=== PATIENT | female | born 1965 | race Caucasian/White ===

== ENCOUNTER 2020-11-05 12:55 | Emergency (ER) | payer BC, OTHER ==
[~2020-11-05] VITALS: Ht 162.6 cm; Wt 100.7 kg
[2020-11-05] MEDS ORDERED: KETOROLAC 30 MG/1 ML ONE (13:52)
[2020-11-05] MEDS ORDERED: KETOROLAC 30 MG/1 ML IVPush ONE (14:00)
[2020-11-05] MEDS ORDERED: SODIUM CHLORIDE 0.9% 1,000ML IV ONE (14:00)
[2020-11-05] MEDS ORDERED: SODIUM CHLORIDE FLUSH 10ML SYR IVF ONE (14:00)
--- NOTE | 2020-11-05 14:02 | NUR ---
PIV PLACED BY SUPERVISOR [employer] EFFECTS. LABS DRAWN AND COLLECTED BY PROOF CLERK. 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 SPOUSE AT BEDSIDE.
[2020-11-05 14:18] LABS: BASOPHILS % (AUTO) 1 % (0-1); EOSINOPHILS % (AUTO) 3 % (1-7); LYMPHOCYTES % (AUTO) 31 % (22-44); MEAN CORPUSCULAR HEMOGLOBIN 29.2 pg (27.0-34.8); MEAN CORPUSCULAR HGB CONC 33.2 g/dL (32.4-35.8); MEAN PLATELET VOLUME 8.9 fL (7.4-10.4); MONOCYTES % (AUTO) 8 % (2-9); NEUTROPHILS % (AUTO) 57 % (42-75); PLATELET COUNT 242 x10^3/uL (130-400); RED BLOOD COUNT 4.49 x10^6/uL (3.82-5.3); RED CELL DISTRIBUTION WIDTH 13.4 % (9.6-15.2)
[2020-11-05 14:20] LABS: MD NO
[2020-11-05 14:22] LABS: ANION GAP 8 mmol/L (5-15); CALCIUM 8.4 mg/dL (8.5-10.1); CHLORIDE 106 mmol/L (98-107); CREATININE 0.77 mg/dL (0.55-1.02)
[2020-11-05 14:23] LABS: ALANINE AMINOTRANSFERASE 29 U/L (12-78); ALBUMIN 3.8 g/dL (3.4-5.0)
[2020-11-05 14:25] LABS: ALKALINE PHOSPHATASE 91 U/L (45-117); BILIRUBIN,TOTAL 0.3 mg/dL (0.2-1.0); TOTAL PROTEIN 6.9 g/dL (6.4-8.2)
[2020-11-05] MEDS ORDERED: HYDROmorphone 1 MG/ML, 1ML INJ ONE (14:55)
--- NOTE | 2020-11-05 14:59 | NUR ---
Report from Rupali SOLANO.
[2020-11-05] MEDS ORDERED: HYDROmorphone 2 MG/ML, 1ML IVPush PRN (15:00)
--- NOTE | 2020-11-05 15:02 | NUR ---
Pt requesting pain meds before imaging. 1mg Dilaudid given per eMAR.
[2020-11-05 15:12] LABS: MICROSCOPIC NOT IND
--- NOTE | 2020-11-05 15:46 | NUR ---
Pt back from CT. Reports the dilaudid decreased pain from 9/10 to 7/10 but "its still hurting, like a constant contraction" - reports pain is left flank area radiating to left abdomen.
--- NOTE | 2020-11-05 16:16 | NUR ---
Pt requesting more dilaudid. UA, blood work, and CT scan done today are all normal. This RN talked to Dr. Brumfield about this, explaining the pt is still having severe pain despite all the tests done so far today being normal- Dr. Brumfield states we can give solumedrol and a muscle relaxer for pain and see if that helps and get an MRI done. Explained this to pt, pt agrees to meds and MRI.
[2020-11-05] MEDS ORDERED: methylPREDNISolone SOD SUCC 125 MG/2 ML IVPush ONE (16:31)
[2020-11-05] MEDS ORDERED: methylPREDNISolone SOD SUCC 125 MG/2 ML ONE (16:36)
--- NOTE | 2020-11-05 16:41 | NUR ---
Requested William spicer from pharmacy.
--- NOTE | 2020-11-05 16:46 | NUR ---
Solumedrol given per eMAR. Pt to MRI.
[2020-11-05] MEDS ORDERED: METHOCARBAMOL 1,000 MG in DEXTROSE 5% 100 ML IV ONE (17:00)
[2020-11-05] MEDS ORDERED: GADOTERATE 10 MMOL/20ML SYR ONE (17:19)
--- NOTE | 2020-11-05 17:34 | NUR ---
Back from MRI.
--- NOTE | 2020-11-05 18:35 | NUR ---
Dr. Brumfield at bedside.
[2020-11-05 19:23] VITALS: BP 115/58
--- NOTE | 2020-11-05 19:23 | NUR ---
Pt now rating pain 2/10, reports she is ready to go home. Pt agrees with and understands discharge plan and instructions.
--- NOTE | 2020-11-05 19:24 | NUR ---
IV removed, catheter intact, hemostasis achieved, dressing applied.
--- NOTE | 2020-11-05 19:38 | NUR ---
TASK RN: DC EDUCATION PROVIDED BY XIOMARA PACKER. PT AMBULATED STEADILY TO DC WITH RN AND SPOUSE. SPOUSE TO TRANSPORT PT HOME.
== END 2020-11-05 19:42 | disposition home or self-care (01) ==
LOC: ED 14:52
DX: M54.5 Low back pain (principal)
CPT/HCPCS: 36415; 72158; 74176; 80053; 81003; 83605; 85025; 96361; 96365; 96375; 99285; A9575; J1170; J1885; J2800; J2930; J7030